=== PATIENT | male | born 1995 | race African-American/Black ===

== ENCOUNTER 2019-04-06 19:23 | Emergency (ER) | payer OTHER ==
[2019-04-06 19:43] VITALS: BP 128/64; PULSE 84; TEMP 98; BMI 25.2
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
== END 2019-04-06 20:41 | disposition home or self-care (01) ==
LOC: JERFT 19:23
DX: S39.012A Strain of muscle, fascia and tendon of lower back, initial encounter (principal); V43.62XA Car passenger injured in collision with other type car in traffic accident, initial encounter; Y92.414 Local residential or business street as the place of occurrence of the external cause; Y93.89 Activity, other specified; Y99.8 Other external cause status; F17.210 Nicotine dependence, cigarettes, uncomplicated
CPT/HCPCS: 99281-25